=== PATIENT | female | born 1930 | race Caucasian/White ===

== ENCOUNTER 2017-06-12 11:09 | Emergency (ER) | payer OTHER, MEDICARE ==
[~2017-06-12] VITALS: Ht 165.1 cm; Wt 77.3 kg
[~2017-06-12 11:09] MED LIST: DABI150 PO; DILT60CA PO; LOSA25TA31 PO; SYNT112T PO
[2017-06-12 11:19] VITALS: BP 163/79; PULSE 75; RESP 16; TEMP 98.8; O2SAT 94
[2017-06-12] MEDS ORDERED: SODIUM CHLORIDE 0.9% FLUSH 10 ML FLUSH IVF PRN (12:00)
[2017-06-12 12:02] VITALS: O2SAT 95
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
[2017-06-12 12:50] LABS: AUTOMATED NEUTROPHIL # 4.2 TH/MM3 (1.8-7.7); BASOPHIL # 0.1 TH/MM3 (0-0.2); BASOPHIL % 0.9 % (0.0-2.0); EOSINOPHIL # 0.2 TH/MM3 (0-0.4); EOSINOPHIL % 3.6 % (0.0-4.0); HEMATOCRIT 42.2 % (35.0-46.0); HEMOGLOBIN 13.9 GM/DL (11.6-15.3); LYMPH % 14.7 % (9.0-44.0); LYMPHOCYTE # 0.9 TH/MM3 (1.0-4.8); MEAN CELL VOLUME 88.3 FL (80.0-100.0); MEAN CORPUSCULAR HEMOGLOBIN 29.2 PG (27.0-34.0); MEAN PLATELET VOLUME 7.1 FL (7.0-11.0); MONO % 7.1 % (0.0-8.0); MONOCYTE # 0.4 TH/MM3 (0-0.9); NEUT % 73.7 % (16.0-70.0); PLATELET COUNT 292 TH/MM3 (150-450); RED BLOOD COUNT 4.77 MIL/MM3 (4.00-5.30); RED CELL DISTRIBUTION WIDTH 13.6 % (11.6-17.2); WHITE BLOOD COUNT 5.8 TH/MM3 (4.0-11.0)
[2017-06-12 13:04] LABS: CALCIUM 10.5 MG/DL (8.5-10.1)
[2017-06-12 13:05] LABS: BICARBONATE 29.5 MEQ/L (21.0-32.0)
[2017-06-12 13:07] LABS: INTERNATIONAL NORMALIZED RATIO 1.2 RATIO; PROTHROMBIN TIME - PATIENT 12.2 SEC (9.8-11.6)
[2017-06-12] MEDS ORDERED: IOHEXOL 350 MG/ML 10 ML VIAL (for RAD DIAG) IVCONTRAST ONE (13:55)
[2017-06-12 14:17] VITALS: BP 144/78; PULSE 72; RESP 20; O2SAT 95
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
== END 2017-06-12 14:50 | disposition home or self-care (01) ==
LOC: PHED 11:09
DX: Z04.1 Encounter for examination and observation following transport accident (principal); K57.30 Diverticulosis of large intestine without perforation or abscess without bleeding; I48.91 Unspecified atrial fibrillation; I10 Essential (primary) hypertension; E11.9 Type 2 diabetes mellitus without complications; M19.90 Unspecified osteoarthritis, unspecified site; Z79.01 Long term (current) use of anticoagulants
CPT/HCPCS: 71045; 71260; 74177; 80048; 85025; 85610; 85730; 86850; 86900; 86901; 99285; Q9967